=== PATIENT | female | born 1990 | race Two or more races ===

== ENCOUNTER 2018-07-03 21:08 | Emergency (ER) | payer SELFPAY ==
[2018-07-03] MEDS ORDERED: Amoxicillin/Clavulanate TAB* 875 MG PO ONE (22:08)
[2018-07-03] MEDS ORDERED: HYDROcodone/ACETAMIN 5-325 MG* 1 TAB PO ONE (22:08)
--- NOTE | 2018-07-03 22:11 | ED ---
Throat Pain/Nasal Congestion - HPI Summary HPI Summary: Patient complains of upper front dental pain 2 days. Concern for dental infection. Patient is from [place]. States pain radiating into her face. Denies purulent discharge from mouth, fever, N/V, dysphagia, SOB. Medical history is none. - History of Current Complaint Chief Complaint: EDDentalPain Time Seen by Provider: 07/03/18 21:49 Hx Obtained From: Patient Onset/Duration: Gradual Onset Severity: Moderate Associated Signs And Symptoms: Positive: Negative Cough: None - Allergies/Home Medications Allergies/Adverse Reactions: Allergies Allergy/AdvReac Type Severity Reaction Status Date / Time No Known Allergies Allergy Verified 07/03/18 21:13 PMH/Surg Hx/FS Hx/Imm Hx Endocrine/Hematology History: Denies: Hx Anticoagulant Therapy Cardiovascular History: Denies: Hx Cardiac Arrest History: Denies: Hx Dialysis Neurological History: Denies: Hx CVA Infectious Disease History: No Infectious Disease History: Reports: Traveled Outside the [place] in Last 30 Days - [place] - Social History Alcohol Use: Occasionally Hx Substance Use: No Smoking Status (MU): Never Smoked Tobacco Review of Systems Constitutional: Negative Eyes: Negative Positive: Dental Pain Cardiovascular: Negative Respiratory: Negative Gastrointestinal: Negative Genitourinary: Negative Musculoskeletal: Negative Skin: Negative Neurological: Negative Psychological: Normal All Other Systems Reviewed And Are Negative: Yes Physical Exam - Summary Physical Exam Summary: No dental trauma noted. No apical abscess noted. No oral lesions noted. Full range of motion of jaw. No facial swelling. Triage Information Reviewed: Yes Vital Signs On Initial Exam: Initial Vitals Temp Pulse Resp BP Pulse Ox 97.7 F 74 16 121/70 99 07/03/18 21:11 07/03/18 21:11 07/03/18 21:11 07/03/18 21:11 07/03/18 21:11 Vital Signs Reviewed: Yes Appearance: Positive: Well-Appearing Skin: Positive: Warm Head/Face: Positive: Normal Head/Face Inspection Eyes: Positive: Normal ENT: Positive: Normal ENT inspection Dental: Positive: Gross Decay/Caries @. Negative: Abscess @ Neck: Positive: Supple Respiratory/Lung Sounds: Positive: Clear to Auscultation Cardiovascular: Positive: Normal Abdomen Description: Positive: Nontender Musculoskeletal: Positive: Normal Neurological: Positive: Normal Psychiatric: Positive: Normal AVPU Assessment: Alert - [place] Coma Scale Best Eye Response: 4 - Spontaneous Best Motor Response: 6 - Obeys Commands Best Verbal Response: 5 - Oriented Coma Scale Total: 15 Diagnostics - Vital Signs Vital Signs Temp Pulse Resp BP Pulse Ox 07/03/18 21:11 97.7 F 74 16 121/70 99 - Laboratory Lab Statement: Any lab studies that have been ordered have been reviewed, and results considered in the medical decision making process. EENT Course/Dx - Course Course Of Treatment: Patient complains of upper front dental pain 2 days. Concern for dental infection. Patient is from [facility]. States pain radiating into her face. Denies purulent discharge from mouth, fever, N/V, dysphagia, SOB. Medical history is none. Physical exam:No dental trauma noted. No apical abscess noted. No oral lesions noted. Full range of motion of jaw. No facial swelling. Vital signs within normal limits. Patient started on Augmentin here in the ED. Rx for same and hydrocodone x 5 tabs - Diagnoses Provider Diagnoses: Pain, dental Discharge - Sign-Out/Discharge Documenting (check all that apply): Patient Departure - Discharge Plan Condition: Stable Disposition: HOME Prescriptions: Amoxicillin/Clavulanate TAB* [Augmentin TAB 875*] 875 mg PO BID #20 tab HYDROcodone/ACETAMIN 5-325 MG* [[place] 5-325 TAB*] 1 tab PO TID 2 Days #5 tab MDD 2 tabs Patient Education Materials: Toothache (ED) Referrals: No Primary Care Phys,NOPCP [Primary Care Provider] - Additional Instructions: Follow-up with your dentist. Return to the ED for any new or worsening symptoms - Billing Disposition and Condition Condition: STABLE Disposition: Home
[2018-07-03 22:28] VITALS: BP 120/74
== END 2018-07-03 22:27 | disposition home or self-care (01) ==
LOC: ED 21:08
DX: H60.91 Unspecified otitis externa, right ear (principal); H92.09 Otalgia, unspecified ear
CPT/HCPCS: 99281; A9270-GY

== ENCOUNTER 2018-07-04 17:38 | Emergency (ER) | payer SELFPAY ==
[2018-07-04 17:43] VITALS: BP 122/77
--- NOTE | 2018-07-04 18:01 | ED ---
Throat Pain/Nasal Congestion - HPI Summary HPI Summary: The pt is a 27 y/o [facility] L facial swelling since 2 days ago worsened today. She notes dental pain rated 2/10 in severity. The pt is visiting from [place]. She took Ibuprofen and ASA to no relief. 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 Onset/Duration: Lasting Days - 2 days, Still Present Related History: Other (Noted In Comments) - Dental pain - Allergies/Home Medications Allergies/Adverse Reactions: Allergies Allergy/AdvReac Type Severity Reaction Status Date / Time No Known Allergies Allergy Verified 07/03/18 21:13 PMH/Surg Hx/FS Hx/Imm Hx Previously Healthy: No Endocrine/Hematology History: Denies: Hx Anticoagulant Therapy Cardiovascular History: Denies: Hx Cardiac Arrest GI History: Reports: Other GI Disorders - Dental problems History: Denies: Hx Dialysis Neurological History: Denies: Hx CVA Infectious Disease History: No Infectious Disease History: Denies: Traveled Outside the [place] in Last 30 Days - Family History Known Family History: Negative: Cardiac Disease, Hypertension, Diabetes - Social History Occupation: Student Lives: Dormitory/Roommates Alcohol Use: Occasionally Hx Substance Use: No Substance Use Type: Reports: None Smoking Status (MU): Never Smoked Tobacco Review of Systems Negative: Fever Positive: Dental Pain, Other - Positive: L facial swelling All Other Systems Reviewed And Are Negative: Yes Physical Exam - Summary Physical Exam Summary: Appearance: Well-appearing, Well-nourished, lying in bed comfortable Skin: Warm, dry, no obvious rash Eyes: sclera anicteric, no conjunctival pallor ENT: mucous membranes moist; Mild L sided maxillary swelling Neck: deferred Respiratory: No signs of respiratory distress Cardiovascular: Appears well perfused, pulses are nml Abdomen: deferred Musculoskeletal: Moving all 4 extremities without obvious discomfort Neurological: Awake and alert, mentation is normal, speech is fluent and appropriate Psychiatric: affect is normal, does not appear anxious or depressed Triage Information Reviewed: Yes Vital Signs On Initial Exam: Initial Vitals Temp Pulse Resp BP Pulse Ox 97.4 F 84 16 122/77 100 07/04/18 17:40 07/04/18 17:40 07/04/18 17:40 07/04/18 17:40 10/03/18 17:40 Vital Signs Reviewed: Yes Diagnostics - Vital Signs Vital Signs Temp Pulse Resp BP Pulse Ox 07/04/18 17:40 97.4 F 84 16 122/77 100 - Laboratory Lab Statement: Any lab studies that have been ordered have been reviewed, and results considered in the medical decision making process. EENT Course/Dx - Course Course Of Treatment: A 27 year-old F presents to the ED with a CC of L facial swelling since 2 days ago worsened today. She notes dental pain rated 2/10 in severity. The pt is visiting from [facility]. She took Ibuprofen and ASA to no relief.A physical exam revealed mild L sided maxillary swelling. The patient will be discharged with a final Dx of dental abscess. Pt is agreeable with this plan. Allergies noted. - Diagnoses Provider Diagnoses: Dental abscess Discharge - Sign-Out/Discharge Documenting (check all that apply): Patient Departure - DC - Discharge Plan Condition: Good Disposition: HOME Prescriptions: Clindamycin HCl 300 mg PO TID #30 capsule Patient Education Materials: Dental Abscess (ED) Referrals: No Primary Care Phys,NOPCP [Primary Care Provider] - [facility] [Outside] - 3 Days Additional Instructions: Return to ED for any new or worsening symptoms - Billing Disposition and Condition Condition: GOOD Disposition: Home - Attestation Statements Document Initiated by Armondibsilvana: Yes Documenting Scribe: Estela Martínez Provider For Whom Paul is Documenting (Include Credential): Dr. Liam Roldan MD Scribe Attestation: Estela Gonzalez scribed for Dr. Liam Roldan MD on 07/05/18 at 1521. Scribe Documentation Reviewed: Yes Provider Attestation: The documentation as recorded by the Estela bradley accurately reflects the service I personally performed and the decisions made by me, Dr. Liam Roldan MD
== END 2018-07-04 18:34 | disposition home or self-care (01) ==
LOC: ED 17:38
DX: K04.7 Periapical abscess without sinus (principal)
CPT/HCPCS: 99281